=== PATIENT | female | born 1970 | race African-American/Black ===

== ENCOUNTER 2017-10-03 15:55 | Emergency (ER) | payer OTHER ==
[2017-10-03 16:10] VITALS: BP 124/70; PULSE 69; TEMP 98.4; BMI 33.0
[2017-10-03] MEDS ORDERED: KETOROLAC TROMETHAMINE 60 MG/2 ML VIAL IM ONE (16:43)
--- NOTE | 2017-10-03 16:47 | PDOC ---
History of Present Illness - General Chief Complaint: Back Pain Stated Complaint: BACK PAIN Time Seen by Provider: 10/03/17 16:13 History Source: Patient - History of Present Illness Occurred: reports: yesterday Severity: reports: moderate Pain Location: reports: back Past History - Past Medical History Allergies/Adverse Reactions: Allergies Allergy/AdvReac Type Severity Reaction Status Date / Time acetaminophen [From Percocet] Allergy Verified 10/03/17 16:10 oxycodone [From Percocet] Allergy Verified 10/03/17 16:10 Home Medications: Ambulatory Orders Cyclobenzaprine HCl [Flexeril -] 10 mg PO TID #9 tablet 10/03/17 Ibuprofen [Motrin -] 800 mg PO Q6H #30 tablet 10/03/17 COPD: No - Suicide/Smoking/Psychosocial Hx Smoking History: Never smoked Review of Systems - Review of Systems Constitutional: No: Chills, Fever Respiratory: No: Cough, Shortness of Breath, Wheezing Cardiac (ROS): No: Chest Pain, Lightheadedness, Palpitations *Physical Exam - Vital Signs Last Vital Signs Temp Pulse Resp BP Pulse Ox 98.4 F 69 18 124/70 99 10/03/17 16:08 10/03/17 16:08 10/03/17 16:08 10/03/17 16:08 10/03/17 16:08 - Physical Exam General Appearance: Yes: Appropriately Dressed. No: Apparent Distress HEENT: positive: Normal Voice Neck: positive: Supple. negative: Tender, Decreased range of motion Respiratory/Chest: positive: Lungs Clear, Normal Breath Sounds. negative: Respiratory Distress Cardiovascular: positive: Regular Rate, S1, S2 Musculoskeletal: positive: Vertebral Tenderness (to L mid back) Extremity: negative: Tender, Pedal Edema, Swelling Integumentary: positive: Dry, Warm Neurologic: positive: Fully Oriented, Alert, Normal Mood/Affect Medical Decision Making - Medical Decision Making 10/03/17 16:43 47-year-old female, history of asthma, mirena IUD, here with back pain. Patient states for the past week she's been having vague neck pain, but last night started having gradual left mid back pain, describes as tight and worse with movement and with deep inspiration, otherwise not short of breath and no chest pain, palpitations, leg pain or swelling. Patient denies trauma or other obvious inciting factor. No h/o similar pain. See exam L thoracic back pain Suspect MSK etiology given hx and reproducible factor, less likely PE based on hx and clinical findings (of note, unable to apply PERC given mirena control), no suspicion of aortic pathology at this time -pain control in ED and reassess 10/03/17 16:52 10/03/17 16:55 *DC/Admit/Observation/Transfer Diagnosis at time of Disposition: Back pain Qualifiers: Back pain location: low back pain Chronicity: acute Back pain laterality: left Sciatica presence: without sciatica Qualified Code(s): M54.5 - Low back pain - Discharge Dispostion Condition at time of disposition: Improved - Prescriptions Prescriptions: Cyclobenzaprine HCl [Flexeril -] 10 mg PO TID #9 tablet Ibuprofen [Motrin -] 800 mg PO Q6H #30 tablet - Referrals Referrals: Ofelia Salgado [Primary Care Provider] - - Patient Instructions Printed Discharge Instructions: Thoracic Back Pain Additional Instructions: The cause of your back pain is possibly muscular. Take medication as prescribed. If pain persists, please follow-up with your primary care physician. If symptoms worsen and/or you develop symptoms such as shortness of breath, chest pain or palpitations, return to ER immediately - Post Discharge Activity
[2017-10-03] MEDS ORDERED: KETOROLAC TROMETHAMINE 60 MG/2 ML VIAL ONE (16:51)
== END 2017-10-03 17:11 | disposition home or self-care (01) ==
LOC: JERFT 15:55
PROC: 3E0233Z Introduction of Anti-inflammatory into Muscle, Percutaneous Approach (ICD-10-PCS; principal; 2017-10-03)
DX: M54.5 Low back pain (principal); Z87.09 Personal history of other diseases of the respiratory system; Z97.5 Presence of (intrauterine) contraceptive device
CPT/HCPCS: 99281-25